=== PATIENT | female | born 1985 | race Caucasian/White ===

== ENCOUNTER 2022-03-15 08:41 | Emergency (ER) | payer BC ==
[~2022-03-15] VITALS: Ht 175.3 cm; Wt 61.2 kg
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
[2022-03-15] MEDS ORDERED: IBUPROFEN 400 MG TABLET ONE (09:16)
[2022-03-15] MEDS ORDERED: IBUPROFEN 600 MG TABLET ONE (09:17)
[2022-03-15] MEDS: IBUPROFEN 600 MG TABLET PO ONE (09:18)
--- NOTE | 2022-03-15 09:39 | NUR ---
URINE COLLECTED AND SENT
--- NOTE | 2022-03-15 10:41 | NUR ---
X RAY AT BEDSIDE
[2022-03-15] MEDS ORDERED: HYDR-3980 PO (11:07)
[2022-03-15 11:16] VITALS: BP 135/77
--- NOTE | 2022-03-15 11:17 | NUR ---
Patient discharged to home in stable condition. Written and verbal after care instructions given. Patient verbalizes understanding of instruction.
== END 2022-03-15 11:17 | disposition home or self-care (01) ==
LOC: ER 08:46
DX: S50.12XA Contusion of left forearm, initial encounter (principal); S50.11XA Contusion of right forearm, initial encounter; S20.219A Contusion of unspecified front wall of thorax, initial encounter; F98.8 Other specified behavioral and emotional disorders with onset usually occurring in childhood and adolescence; V49.49XA Driver injured in collision with other motor vehicles in traffic accident, initial encounter; Y93.89 Activity, other specified; Y92.413 State road as the place of occurrence of the external cause; Y99.8 Other external cause status
CPT/HCPCS: 71045-TC; 73090-TC; 84703-TC